=== PATIENT | male | born 1985 | race Caucasian/White ===

== ENCOUNTER 2020-09-08 09:04 | Emergency (ER) | payer MEDICAID ==
[~2020-09-08] VITALS: Ht 175.3 cm; Wt 77.1 kg
--- NOTE | 2020-09-08 09:15 | NUR ---
ED Nurse Note: pt arrives via [facility] from [facility] with [facility] placement of 5150 hold for SI. pt relates increased depression since in [facility] one month ago and stopped taking meds when released. pt with gps ankle bracelet on as he states on probation. pt related to staff at house that he wants to hang himself with a rope. pt cooperative with rn care. belongings placed in psych locker as per list. duffle bag placed in clean utility area also. pt denies hallucinations or HI. denies prior suicide attempts. states no recent etoh or substance use but has hx of both. pt made aware of and agrees to plan. relates he is aware of being placed on a hold and unable to leave ed at this time. amb steady gait a/ox4. no injuries noted. water given to pt. tolerates lab draw and iv start well. rapid covid sent.
--- NOTE | 2020-09-08 09:22 | Emergency Room Report ---
History of Present Illness General Chief Complaint: Behavioral Complaint Source: Patient Present Illness HPI 35-year-old male brought in by [employer] on 5150 hold for suicidal ideation. Patient states that he has been feeling like this over the past 2 weeks. He is in a [facility] house after [facility] has been [facility]. He states that he is being bullied at the [facility] house and he is having thoughts of harming himself because he cannot leave the facility and is hopeless. Denies homicidal ideation, auditory or visual hallucination. He has had previous psychiatric hospitalizations. He complains of muscle pain, however no other complaints. Denies fever, cough, phlegm, chills, nausea, vomiting, chest pain, diarrhea, or other complaints The patient's symptoms were gradual onset, severity was moderate, duration since 14 days. 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 Conjunctivae clear. Lids without swelling ENT: External nose and ear normal_in_appearance. Oropharynx clear. Head_atrauma tic, Moist_oral_mucosa NECK: No JVD. No meningismus. No thyromegaly. Supple. Trachea midline RESP: Normal respiratory effort. Symmetric rise. No stridor. Clear_to_auscultation_No_rales_No_wheezes CARDIAC: Regular rate and regular rhytm. No_significant pedal edema. ABDOMEN: Soft. Nondistended. Nontender_No_rebound_or_guarding. MSK: Normal muscle tone, without rigidity. Extremities without asymmetric deformity or swelling. SKIN: Warm and dry. No visible cyanosis or pallor NEUROLOGIC: Alert, oriented x3. Motor_and_sensation_grossly_intact. No truncal ataxia. Gait_normal Psych: Normal mood and affect, normal judgment and insight ++SI. Denies HI. Denies auditory or visual hallucinations. - COORDINATION OF CARE Case was discussed with: Patient Any labs and imaging that were ordered were interpreted as part of the medical decision making: Medical Decision Making/Plan: Differential diagnosis includes severe depression, suicidal ideation, bipolar disorder, among others. The patient denies any suicide attempt, overdose, or ingestion. They exhibit no signs of any toxic syndrome or drug / alcohol withdrawal. Labs were ordered for evaluation, and results are reassuring with no evidence of occult overdose, or severe metabolic derangement. The patient was observed for a period of time in the ED with serial neurologic exams. After serial neurologic exams in the emergency department, the patient remains clinically sober. They have no focal neurologic deficits and were able to ambulate with a steady gait without assistance. The patients presentation seems to be consistent with suicidal ideation, with out any complications such as suicide attempt or overdose. The patient appears to be stable for transfer to a psychiatric facility for further psychiatric evaluation and care, without any obvious medical etiology for their symptoms. I have contacted our psychiatrist Dr. Belcher who has agreed to see the patient this afternoon Care to be signed out to Dr. Sorensen pending placement Allergies: Coded Allergies: AMOXICILLIN (Verified Allergy, Unknown, 09/08/20) COVID-19 Screening Contact w/high risk pt: No Experienced COVID-19 symptoms?: No COVID-19 Testing performed AIRPORT BAGGAGE SCREENER: No Nursing Documentation-[facility] Past Medical History: No History, Except For History Of Psychiatric Problem: Yes - depression Physical Exam Vital Signs Date Time Temp Pulse Resp B/P (MAP) Pulse Ox O2 Delivery O2 Flow Rate FiO2 09/08/20 09:05 98.8 88 16 146/82 (103) 98 Room Air Sp02 EP Interpretation: reviewed, normal Medical Decision Making Diagnostic Impression: Primary Impression: Suicidal ideation Additional Impression: Depression Last Vital Signs Date Time Temp Pulse Resp B/P (MAP) Pulse Ox O2 Delivery O2 Flow Rate FiO2 09/08/20 09:05 98.8 88 16 146/82 (103) 98 Room Air Disposition: PSYCH HOSP/UNIT Admit Decision Time: 14:00 - Signed out to Dr. Chacon pending LPS facility Condition: Stable Scripts No Active Prescriptions or Reported Meds Referrals: NOT CHOSEN IPA/,REFERRING (PCP) Shakira Rocha D.O. Sep 08, 2020 09:22
[2020-09-08 09:42] LABS: APPEARANCE,URINE CLEAR; BILIRUBIN, URINE NEGATIVE (NEGATIVE); COLOR,URINE PALE YELLOW; GLUCOSE, URINE (UA) NEGATIVE (NEGATIVE); KETONES,URINE NEGATIVE (NEGATIVE); LEUKOCYTE ESTERASE ,URINE 1+ (NEGATIVE); NITRITE,URINE NEGATIVE (NEGATIVE); PH,URINE 7 (4.5-8.0); PROTEIN,URINE NEGATIVE (NEGATIVE); UROBILINOGEN,URINE NORMAL MG/DL (0.0-1.0)
[2020-09-08 09:48] LABS: ANION GAP 8 mmol/L (5-15); BLOOD UREA NITROGEN 9 mg/dL (7-18); CALCIUM 8.7 MG/DL (8.5-10.1); CARBON DIOXIDE 25 MMOL/L (21-32); CHLORIDE 105 MMOL/L (98-107); POTASSIUM 3.7 MMOL/L (3.5-5.1); SODIUM 138 MMOL/L (136-145)
[2020-09-08 09:49] LABS: BASOPHILS % (AUTO) 1.3 % (0.0-2.0); EOSINOPHILS % (AUTO) 1.2 % (0.0-3.0); HEMATOCRIT 43.5 % (42.0-52.0); HEMOGLOBIN 15.1 G/DL (14.2-18.0); LYMPHOCYTES % (AUTO) 32.9 % (20.0-45.0); MEAN CORPUSCULAR VOLUME 82 FL (80-99); MONOCYTES % (AUTO) 7.2 % (1.0-10.0); NEUTROPHILS % (AUTO) 57.4 % (45.0-75.0); PLATELET COUNT 246 K/UL (150-450); RED BLOOD COUNT 5.29 M/UL (4.70-6.10); RED CELL DISTRIBUTION WIDTH 11.6 % (11.6-14.8); WHITE BLOOD COUNT 5.5 K/UL (4.8-10.8)
[2020-09-08 10:02] LABS: ALANINE AMINOTRANSFERASE 20 U/L (12-78); ALBUMIN 3.9 G/DL (3.4-5.0); ALBUMIN/GLOBULIN RATIO 1.7 (1.0-2.7); ALKALINE PHOSPHATASE 57 U/L (46-116); ASPARTATE AMINO TRANSFERASE 13 U/L (15-37); BILIRUBIN,TOTAL 0.2 MG/DL (0.2-1.0)
--- NOTE | 2020-09-08 12:23 | NUR ---
ED Nurse Note: pt remains cooperative, talking on the phone. dietary tray given to pt.
--- NOTE | 2020-09-08 14:17 | NUR ---
.ED Nurse Note: pt speaking on phone, requesting the supercharger repair supervisor for his phone and gps ankle bracelet supercharger repair supervisor. pt contracts for safety with rn. pt in possesion of chargers. remains in visual contact with rn. remains cooperative but occasionally irritable with staff and phone contact. pt aware he is to remain in room or out to [facility] only at this time.
--- NOTE | 2020-09-08 15:50 | NUR ---
ED Nurse Note: pt requesting medicine for neck pain. aware and tylenol ordered
--- NOTE | 2020-09-08 16:17 | NUR ---
ED Nurse Note: dr cole evaluating pt virtually. pt to have [address] dr Sorensen aware of dr cole recommendation. pt with iv site out intactly. we will notify public health service officer and they will be en route to pick him up and transport to housing. pt cooperative with plan.
--- NOTE | 2020-09-08 16:47 | NUR ---
ED Nurse Note: Pt cleared by health care Provider for discharge. DC instructions given and explained to pt and verbalized understanding of teachings. All medical devices such as ID band removed. Pt is AAO x4, ambulatory and left with all personal belongings. chief diversity officer states pt can be dc on his own per arlyn emt. pt given belongings
[2020-09-08 16:52] VITALS: BP 136/78
--- NOTE | 2020-09-09 00:32 | Consultation ---
DATE OF CONSULTATION: 09/08/2020 HISTORY OF PRESENT ILLNESS: This is a 35-year-old male with a history of unknown psychiatric history who has been admitted to the hospital on a 5150. The patient allegedly told the billiard table repairer that he is suicidal. He was brought into the emergency room. The patient has a child-like behavior and was sarcastic during the evaluation. He was laughing and he said that he is suicidal , and then during evaluation, he stated that he wanted to be actually going back to [facility]. He was not forthcoming, and at some point stated that he was living in a half-way home. He was kicked out and he does not have a place to go back to. PAST PSYCHIATRIC HISTORY: The patient is denying any psychiatric hospitalization. The patient does not have any suicide attempt in the past. PAST MEDICAL HISTORY: Nonsignificant. ALLERGIES: No known drug allergies noted. SUBSTANCE ABUSE HISTORY: He is denying any illicit drug use or alcohol. MENTAL STATUS EXAMINATION: The patient is alert, oriented times self, place, and situation. Mood is neutral. Affect is blunted, congruent with mood. Thought process is concrete. Thought content, there is no suicidal or homicidal ideation. Cognition is intact. Insight and judgment are fair. ASSESSMENT: Walker I Question mood disorder, not otherwise specified. Rule out malingering. Walker II None. Walker III None. Walker IV Legal issues and homelessness. Walker V PLAN: 1. Discontinue the 5150. 2. The patient is cleared to be discharged from psychiatric point of view. Ashok Belcher M.D. DR: JAMAL JOB#: [id number] CC:
== END 2020-09-08 16:50 | disposition home or self-care (01) ==
LOC: EDBD 09:04 → EMR 09:17
DX: R45.851 Suicidal ideations (principal); F32.9 Major depressive disorder, single episode, unspecified; Z88.1 Allergy status to other antibiotic agents; Z90.89 Acquired absence of other organs
CPT/HCPCS: 36415; 80053; 80307; 81003; 84443; 85025; G0480; G0481; U0002; Z7502; 99285